=== PATIENT | female | born 1950 | race Hispanic/Latino ===

== ENCOUNTER 2016-12-05 08:51 | Emergency (ER) | payer MEDICARE ==
[2016-12-05 09:53] LABS: Basophils % (Auto) 0.6 % (0.0-1.8); Eosinophils % (Auto) 1.6 % (0.0-4.3); Hematocrit 43.5 % (30.3-42.9); Hemoglobin 14.9 gm/dl (10.1-14.3); Mean Corpuscular HGB Conc 34 % (30-34); Mean Corpuscular Hemoglobin 32 pg (28-32); Mean Corpuscular Volume 94 fl (79-97); Platelet Count 223 K/mm3 (140-440); Red Blood Count 4.62 M/mm3 (3.65-5.03); Red Cell Distribution Width 13.4 % (13.2-15.2); White Blood Count 7.5 K/mm3 (4.5-11.0)
[2016-12-05 10:15] LABS: Albumin 4.2 g/dL (3.9-5); Albumin/Globulin Ratio 1.5 %; Bilirubin,Total 0.3 mg/dL (0.1-1.2); Calcium 9.4 mg/dL (8.4-10.2); Chloride 102.9 mmol/L (98-107); Potassium 4.6 mmol/L (3.6-5.0)
[2016-12-05 12:10] LABS: Bilirubin,Urine NEG (Negative); Blood,Urine SM (Negative); Ketones,Urine NEG (Negative); Leukocyte Esterase,Urine SM (Negative); Mucus,Urine FEW /HPF; Nitrite,Urine NEG (Negative); Protein,Urine <15 mg/dL mg/dL (Negative); Urobilinogen,Urine < 2.0 mg/dL (<2.0)
[2016-12-05] MEDS ORDERED: BENTYL PO ONE (12:29)
[2016-12-05] MEDS ORDERED: ZOFRAN ODT PO ONE (12:29)
[2016-12-05] MEDS ORDERED: TYLENOL PO ONE (12:29)
--- NOTE | 2016-12-05 12:31 | Emergency Department Report ---
ED General Adult HPI - General Chief complaint: Abdominal Pain Stated complaint: LEFT SIDE PAIN Time Seen by Provider: 12/05/16 12:23 Source: patient, RN notes reviewed Mode of arrival: Ambulatory Limitations: No Limitations - History of Present Illness Initial comments: This is a 66-year-old female. The patient is previously unknown to this provider. She has a past medical history of renal colic, thyroid, hysterectomy. Patient presents to the ER with left lower quadrant pain on and off for the past few days. She thinks that she is constipated. She denies fevers and chills. Denies nausea. He denies irritative obstructive urinary symptoms. Reports having had a colonoscopy last year, which was significant only for a small polyp. Her primary care doctor is Dr. Paul. -: Gradual Location: abdomen Radiation: abdomen Quality: aching Consistency: intermittent Improves with: rest Worsens with: movement Associated Symptoms: denies: confusion, chest pain, cough, diaphoresis, fever/ chills, headaches, loss of appetite, shortness of breath, syncope, weakness - Related Data Previous Rx's Medication Instructions Recorded Last Taken Type Acetaminophen [Tylenol Arthritis] 650 mg PO Q6HR PRN #30 tablet.er 12/05/16 Unknown Rx Ketorolac [Toradol] 10 mg PO Q6H PRN #20 tablet 12/05/16 Unknown Rx Ondansetron [Zofran Odt] 4 mg PO QID PRN #20 tab.rapdis 12/05/16 Unknown Rx Tamsulosin [Flomax] 0.4 mg PO QDAY #30 cap 12/05/16 Unknown Rx oxyCODONE [Roxicodone] 5 mg PO Q6HR PRN #15 tablet 12/05/16 Unknown Rx Allergies Allergy/AdvReac Type Severity Reaction Status Date / Time No Known Allergies Allergy Unverified 12/05/16 09:01 ED Review of Systems ROS: Stated complaint: LEFT SIDE PAIN Other details as noted in HPI Constitutional: denies: fever Eyes: denies: eye discharge ENT: denies: epistaxis Respiratory: denies: cough Cardiovascular: denies: chest pain Gastrointestinal: abdominal pain Genitourinary: denies: urgency, dysuria Musculoskeletal: denies: back pain Skin: denies: lesions Neurological: denies: weakness ED Past Medical Hx - Past Medical History Previous Medical History?: Yes Hx Arthritis: Yes (knees) Additional medical history: Thyroid , sinus infections - Surgical History Past Surgical History?: Yes Hx Cholecystectomy: Yes Hx Appendectomy: Yes Additional Surgical History: tubaligation, Hysterectomy, Cervical neck surgery, Bone spurs removed from haroldo feet, Thyroid removed - Social History Smoking Status: Former Smoker Substance Use Type: Alcohol, Prescribed - Medications Home Medications: Home Medications Medication Instructions Recorded Confirmed Last Taken Type Acetaminophen [Tylenol Arthritis] 650 mg PO Q6HR PRN #30 tablet.er 12/05/16 Unknown Rx Ketorolac [Toradol] 10 mg PO Q6H PRN #20 tablet 12/05/16 Unknown Rx Ondansetron [Zofran Odt] 4 mg PO QID PRN #20 tab.rapdis 12/05/16 Unknown Rx Tamsulosin [Flomax] 0.4 mg PO QDAY #30 cap 12/05/16 Unknown Rx oxyCODONE [Roxicodone] 5 mg PO Q6HR PRN #15 tablet 12/05/16 Unknown Rx ED Physical Exam - General Limitations: No Limitations General appearance: alert, in no apparent distress - Head Head exam: Present: atraumatic, normocephalic - Eye Eye exam: Present: normal appearance, EOMI. Absent: nystagmus - ENT ENT exam: Present: normal exam, normal orophraynx, mucous membranes moist, normal external ear exam - Neck Neck exam: Present: normal inspection, full ROM. Absent: tenderness, meningismus - Respiratory Respiratory exam: Present: normal lung sounds bilaterally. Absent: respiratory distress, wheezes, rales, rhonchi, stridor, chest wall tenderness, accessory muscle use, decreased breath sounds, prolonged expiratory - Cardiovascular Cardiovascular Exam: Present: regular rate, normal rhythm, normal heart sounds. Absent: bradycardia, tachycardia, irregular rhythm, systolic murmur, diastolic murmur, rubs, gallop - GI/Abdominal GI/Abdominal exam: Present: soft, tenderness, normal bowel sounds, other (there is left lower quadrant tenderness, there is left flank tenderness, there is no rebound, guarding or peritoneal signs). Absent: distended, guarding, rebound, rigid, pulsatile mass - Extremities Exam Extremities exam: Present: normal inspection, full ROM, normal capillary refill. Absent: pedal edema, joint swelling, calf tenderness - Back Exam Back exam: Present: normal inspection, full ROM. Absent: tenderness, CVA tenderness (R), CVA tenderness (L), muscle spasm, paraspinal tenderness, vertebral tenderness - Neurological Exam Neurological exam: Present: alert, oriented X3, normal gait, other (Extraocular movements intact. Tongue midline. No facial droop. Facial sensation intact to light touch in the V1, V2, V3 distribution bilaterally. 5 and 5 strength in 4 extremities.. Sensation is intact to light touch in 4 extremities.). Absent : motor sensory deficit - Psychiatric Psychiatric exam: Present: normal affect, normal mood - Skin Skin exam: Present: warm, dry, intact, normal color. Absent: rash ED Course Vital Signs 12/05/16 12/05/16 12/05/16 09:01 09:10 13:05 Temperature 97.7 F Pulse Rate 89 85 76 Respiratory 22 16 Rate Blood Pressure 137/82 137/82 Blood Pressure 141/81 [Left] O2 Sat by Pulse 94 99 97 Oximetry 12/05/16 12/05/16 12/05/16 13:15 13:30 13:45 Temperature Pulse Rate Respiratory Rate Blood Pressure 143/74 143/71 126/70 Blood Pressure [Left] O2 Sat by Pulse 95 94 96 Oximetry 12/05/16 14:00 Temperature Pulse Rate Respiratory Rate Blood Pressure 145/87 Blood Pressure [Left] O2 Sat by Pulse 97 Oximetry - Reevaluation(s) Reevaluation #1: 12/05/16 14:07 Differential diagnosis: Constipation, colitis, diverticulitis, renal colic Assessment and plan: 66-year-old female with left lower quadrant pain, minimally tender, afebrile, with reassuring vital signs, no irritative or obstructive urinary symptoms, no CVA tenderness. Initial urinalysis contaminated. Repeat urinalysis pending. Patient tolerating liquid feeds. Noncontrast CT scan of the abdomen and pelvis demonstrates a 7.4 mm stone in the middle third of the left ureter, with mild to moderate dilatation of the left pelvic calyceal system and proximal ureter. Most likely obstructive uropathy. Repeat urinalysis pending. Reevaluation #2: 12/05/16 15:15 The patient feels improved at the hydromorphone. Repeat clean catch urinalysis not consistent with urinary tract infection. Patient will be discharged at this time. Patient is given copies of laboratory studies, CT scan results, appropriate medication, instructed to follow up with outpatient urology. ED Medical Decision Making - Lab Data Result diagrams: 12/05/16 09:43 12/05/16 09:43 Critical care attestation.: If time is entered above; I have spent that time in minutes in the direct care of this critically ill patient, excluding procedure time. ED Disposition Clinical Impression: Renal colic on left side Disposition: DC-01 TO HOME OR SELFCARE Is pt being admited?: No Does the pt Need Aspirin: No Condition: Stable Instructions: Renal Colic (ED) Additional Instructions: Take the pain medication, nausea medication as directed. Cultures were sent today, results of the available next 3-5 days. Have a primary care doctor or urology specialist contact the medical records department to obtain culture results. Follow up with the urology specialist within the next 5-7 days. Return to the ER right away with new pain, worsened pain, migration of pain, fevers, chills, confusion, intractable nausea or vomiting, inability to tolerate liquid feeds, chills fevers. Prescriptions: Acetaminophen [Tylenol Arthritis] 650 mg PO Q6HR PRN #30 tablet.er PRN Reason: Pain Ketorolac [Toradol] 10 mg PO Q6H PRN #20 tablet PRN Reason: Pain Ondansetron [Zofran Odt] 4 mg PO QID PRN #20 tab.rapdis PRN Reason: Nausea oxyCODONE [Roxicodone] 5 mg PO Q6HR PRN #15 tablet PRN Reason: Pain Tamsulosin [Flomax] 0.4 mg PO QDAY #30 cap Referrals: MAXWELL BOWDEN MD [Primary Care Provider] - 3-5 Days YULIA MALIK MD [Staff Physician] - 3-5 Days [facility] [Provider Group] - 3-5 Days
--- NOTE | 2016-12-05 13:15 | Cat Scan Report ---
CT of the abdomen and pelvis without contrast. History: Left lower quadrant pain. Findings: The liver is normal in size and configuration with no focal abnormalities. The spleen is unremarkable except for several granulomatous calcifications. The pancreas and right kidney are unremarkable. There is a 7.4 mm in diameter stone in the middle third of the left ureter with mild to moderate dilatation of the left pelvic calyceal system and proximal ureter. There no pelvic masses or abnormal fluid collections. No mesenteric inflammation seen. There is no evidence of appendicitis. Impression: 7.4 mm stone in the left mid ureter with mild to moderate obstructive uropathy.
[2016-12-05] MEDS ORDERED: DILAUDID IM ONE (14:04)
[2016-12-05 15:08] LABS: Bilirubin,Urine NEG (Negative); Blood,Urine NEG (Negative); Ketones,Urine NEG (Negative); Leukocyte Esterase,Urine NEG (Negative); Mucus,Urine FEW /HPF; Nitrite,Urine NEG (Negative); Protein,Urine <15 mg/dL mg/dL (Negative); Urobilinogen,Urine < 2.0 mg/dL (<2.0)
[2016-12-05 15:22] VITALS: BP 99/59
== END 2016-12-05 15:22 | disposition home or self-care (01) ==
LOC: ED 08:51
DX: N23 Unspecified renal colic (principal); Z90.49 Acquired absence of other specified parts of digestive tract; Z90.710 Acquired absence of both cervix and uterus; M13.862 Other specified arthritis, left knee; M13.861 Other specified arthritis, right knee; Z87.891 Personal history of nicotine dependence
CPT/HCPCS: 36415; 74176; 80053; 81001; 83690; 85025; 87086; 96372; 99284; J1170; Q0162

== ENCOUNTER 2016-12-11 14:16 | Day surgery (SDC) | payer MEDICARE ==
[~2016-12-11 14:16] MED LIST: ANCEF/STERILE WATER 2 GM/20 ML 2 GM/20 ML SYRINGE IV NR; NACL 0.9% 1000 ML 1,000 ML IV SCH; PEPCID IV NR
[2016-12-11] MEDS ORDERED: NACL BACTERIOSTATIC INFILTRATI ONE (15:19)
--- NOTE | 2016-12-11 15:50 | Anesthesia Consultation ---
Anesthesia Consult and Med Hx Date of service: 12/11/16 - Airway Anesthetic Teeth Evaluation: Good, Dentures (upper and lower) ROM Head & Neck: Adequate Mental/Hyoid Distance: Adequate Mallampati Class: Class I Intubation Access Assessment: Probably Good - Pulmonary Exam CTA: Yes - Cardiac Exam Cardiac Exam: RRR - Pre-Operative Health Status ASA Pre-Surgery Classification: ASA3 Proposed Anesthetic Plan: General - Pulmonary Hx Smoking: Yes (STOPPED X 25 YRS- 1 PPD X 21 YRS) Hx Sleep Apnea: No (JESSENIA PRE SCREEN HIGH RISK) - Cardiovascular System Hx Hypertension: No - Central Nervous System Hx Back Pain: Yes (ACDF) Hx Psychiatric Problems: Yes (Depression) - Gastrointestinal Hx Gastroesophageal Reflux Disease: Yes - Endocrine Hx Hypothyroidism: Yes - Other Systems Hx Cancer: No Hx Obesity: Yes
--- NOTE | 2016-12-11 15:50 | Anesthesia Day of Surgery ---
Anesthesia Day of Surgery - Day of Surgery Patient Examined: Yes Patient H&P Reviewed: Yes Patient is NPO: Yes
[2016-12-11] MEDS ORDERED: SUBLIMAZE ONE (16:34)
[2016-12-11] MEDS ORDERED: XYLOCAINE MPF 2% ONE (16:34)
[2016-12-11] MEDS ORDERED: DIPRIVAN 10 MG/ML IV ONE (16:34)
[2016-12-11] MEDS ORDERED: DECADRON ONE (16:39)
[2016-12-11] MEDS ORDERED: ZOFRAN ONE (16:39)
[2016-12-11] MEDS ORDERED: WATER FOR IRRIG STERILE IR ONE ×2 (16:54)
[2016-12-11] MEDS ORDERED: OMNIPAQUE (240mg) IV ONE (16:54)
[2016-12-11] MEDS ORDERED: LASIX ONE (17:35)
--- NOTE | 2016-12-11 17:37 | Post Operative Note ---
Date of procedure: 12/11/16 Pre-op diagnosis: L ureteral stone Post-op diagnosis: same Findings: as above Procedure: cysto baloon ureteroscopy laser stent Anesthesia: GETA Surgeon: ELENA GORDON Estimated blood loss: none Pathology: none Condition: stable Disposition: PACU
--- NOTE | 2016-12-11 17:38 | Discharge Summary ---
Short Stay Discharge Plan Activity: other (no straining ) Weight Bearing Status: Full Weight Bearing Diet: low fat, low cholesterol, low salt Special Instructions: other (inc fluids ) Durable Medical Equipment Needed Upon Discharge: other (pt has j stent ) Follow up with: PRIMARY CARE, [Primary Care Provider] - 7 Days ELENA GORDON MD [Staff Physician] - 7 Days
[2016-12-11 18:35] VITALS: BP 156/87
--- NOTE | 2016-12-11 21:54 | Post Anesthesia Evaluation ---
- Post Anesthesia Evaluation Patient Participated: Yes Airway Patent: Yes Stable Respiratory Function: Yes Nausea/Vomiting: No Temp > 96.8F: Yes Pain Manageable: Yes Adequeate Hydration: Yes Anesthesia Complications: No Block Receding Appropriately: Not Applicable Patient on Ventilator: No
--- NOTE | 2016-12-11 22:43 | Operative Report ---
PREOPERATIVE DIAGNOSIS: Huge difficult to visualize left upper to mid ureteral stone. POSTOPERATIVE DIAGNOSIS: Huge difficult to visualize left upper to mid ureteral stone. PROCEDURE: Cystoscopy, left retrograde, left ureteral balloon dilatation, left ureteroscopy with laser of a 1 cm stone and double-J stent. SURGEON: Taran Piña MD ANESTHESIA: General. INDICATIONS: This is a woman who is very obese, it was difficult to see the stone in the office, felt a lot of gas today, she now presents for treatment. DESCRIPTION OF PROCEDURE: The patient brought to the operating room and placed on the operating table. Following induction of anesthesia, placed in lithotomy position, prepped and draped in usual sterile fashion. Stone was better visualized today and if there was any difficulty getting up the ureter, we were going to place the stent to ESWL. Retrograde showed the severe obstruction and at this point a balloon dilatation was carried out. Using the small rigid ureteroscope, we were able to unkink the ureter and straightened it out. We saw the stone and the stone was quite large. Using a 200 fiber, we were able to break it up and push any fragments either distally or into the renal pelvis. The patient tolerated the procedure well. No significant complication. A 7-Burkin[place] double J coiled in the kidney and bladder was brought to recovery in stable condition. Family notified. JOB# [id number] VICKEY/ARMIDA
--- NOTE | 2016-12-12 09:42 | Fluoroscopy Report ---
FLUOROSCOPY RETROGRADE UROGRAPHY FLUOROSCOPY URETER/NEPHROSTOMY DILATATION LEFT History: Left ureteral stone. Findings: Fluoroscopy was provided by radiology during retrograde urography by urology. 8 fluoroscopic images were captured. Analytical Laboratory Technician film of the abdomen demonstrates a large calcification measuring approximately 5 x 10 cm in the left mid abdomen. Subsequent images demonstrate injection of contrast in the left renal collecting system which confirms this as an obstructing left ureteral stone. Subsequent images demonstrate placement of a left ureteral stent which adequately drains the collecting system on the final image. Balloon dilatation of the left ureter was also performed. Operative notes mention use of a laser and left ureteroscopy. Please correlate with the procedural report by Dr. Piña. Impression: Left ureteral stone. Left ureteral stent placement as described.
== END 2016-12-11 14:17 | disposition home or self-care (01) ==
LOC: OR 14:16
PROVIDERS: ATTEND Urology
DX: N20.1 Calculus of ureter (principal); E66.9 Obesity, unspecified; F32.9 Major depressive disorder, single episode, unspecified; K21.9 Gastro-esophageal reflux disease without esophagitis; E03.9 Hypothyroidism, unspecified; Z90.49 Acquired absence of other specified parts of digestive tract; Z87.891 Personal history of nicotine dependence; Z98.890 Other specified postprocedural states; Z68.41 Body mass index [BMI] 40.0-44.9, adult
CPT/HCPCS: 52356; 74420; 74485; A4217; C1726; C1758; C1769; C2617; J0690; J1100; J1940; J2405; J2704; J3010; J7030; Q9967

== ENCOUNTER 2017-05-23 15:29 | Outpatient (CLI) | payer MEDICARE ==
--- NOTE | 2017-05-24 10:44 | Magnetic Resonance Report ---
MRI THORACIC SPINE WITHOUT AND WITH CONTRAST: 05/23/17 16:00:00 CLINICAL: Thoracic disc disease and back pain. TECHNIQUE: Sagittal and axial T1 and T2, and sagittal STIR sequences plus sagittal and axial T1 fat-sat postcontrast sequences on a 1.5 Roopa magnet. FINDINGS: Normal vertebral body height and alignment. Mild disc space narrowing at T7-8 and a moderate size left paracentral T7-8 disc protrusion producing mild spinal canal stenosis with mass effect on the cord. Cord signal is normal. The overall cord size is normal. No other disc protrusions or bulges. Prominent left ligamentum flavum hypertrophy at T5 produces mild narrowing of the spinal canal. The conus medullaris is normal and terminates at L1-2. IMPRESSION: A moderate size T7-8 left paracentral disc protrusion producing mild compression of the cord. Left T5 ligamentum flavum hypertrophy producing mild spinal canal stenosis but no cord compression at that level.
== END 2017-05-23 15:30 | disposition home or self-care (01) ==
LOC: MRI 15:29
PROVIDERS: ATTEND Family Medicine
DX: M48.04 Spinal stenosis, thoracic region (principal); M51.24 Other intervertebral disc displacement, thoracic region; M51.9 Unspecified thoracic, thoracolumbar and lumbosacral intervertebral disc disorder
CPT/HCPCS: 72157; A9577